=== PATIENT | male | born 1985 | race Caucasian/White ===

== ENCOUNTER 2022-04-14 06:43 | Emergency (ER) | payer OTHER, MEDICAID, SELFPAY ==
[2022-04-14 06:56] VITALS: BP 133/84; PULSE 94; RESP 15; TEMP 36.9; O2SAT 100; BMI 22.8
--- NOTE | 2022-04-14 07:07 | ED.SKABFB ---
HPI - Skin/Abscess/Foreign Bdy General Chief complaint: Skin/Abscess/Foreign Body Stated complaint: INFECTION IN CHIN LEFT Time Seen by Provider: 04/14/22 07:00 Source: patient Mode of arrival: Ambulatory Limitations: no limitations History of Present Illness HPI narrative: Patient is a 41-year-old male who with abscess under left chin. He states that he has had these before. He says he has gotten it to drain he says he got a much out yesterday but then felt like it was getting a little bit bigger. He has had no fever or chills. He does not want it cut open because he can drain it at home. He just wants antibiotics. He has no difficulty breathing he has not had any fever or chills. Related Data Previous Rx's Medication Instructions Recorded sulfamethoxazole 800 1 tab PO BID 10 days #20 tabs 04/14/22 mg-trimethoprim 160 mg tablet (Bactrim DS) Allergies Allergy/AdvReac Type Severity Reaction Status Date / Time No Known Drug Allergies Allergy Verified 04/14/22 06:56 Review of Systems Review of Systems Narrative: GENERAL: Denies chills,fever HEENT: Denies throat pain RESPIRATORY: Denies dyspnea, cough, wheezing CARDIOVASCULAR: Denies chest pain, palpitations GASTROINTESTINAL: Denies nausea, vomiting MUSCULOSKELETAL: Denies extremity pain, injury SKIN: See HPI NEUROLOGIC: Denies weakness, dizziness, headache, numbness 8 point review of systems is negative except for those stated above and HPI Patient History Social History Smoking Status: Current every day smoker Smoking Status: Current every day smoker alcohol intake frequency: a few times a week Substance Use Type: marijuana Exam Initial Vital Signs Initial Vital Signs: Vital Signs Temperature 98.5 F 04/14/22 06:56 Pulse Rate 94 H 04/14/22 06:56 Respiratory Rate 15 04/14/22 06:56 Blood Pressure 133/84 04/14/22 06:56 Pulse Oximetry 100 04/14/22 06:56 Oxygen Delivery Method 04/14/22 06:56 GENERAL: Well-appearing, well-nourished and in no acute distress. CARDIOVASCULAR: peripheral pulses in tact, cap refill <2 sec NECK: No significant swelling no airway compromise no erythema RESPIRATORY: No respiratory distress, speaks in full sentences without difficulty EXTREMITIES: Normal range of motion, no clubbing or edema. Neurovascularly intact NEUROLOGICAL: Cranial nerves II through XII grossly intact. Normal gait and speech. SKIN: Abscess under left chin in feared 2 and half by 3 cm fluctuation mild swelling no active draining at this time Course Vital Signs Vital signs: Vital Signs - 8 hr 04/14/22 06:56 Temperature 98.5 F Pulse Rate 94 H Respiratory Rate 15 Blood Pressure 133/84 Pulse Oximetry 100 Oxygen Delivery Method Room Air MDM - Skin/Abscess/Foreign Bdy MDM Narrative Medical decision making narrative: Discussion with patient try to encourage for I and D however he has had the my indeed before he has lots of scar tissue he is hesitant to do it again. He says he can get it to drain it is just not draining right now. I encouraged him to use warm compresses start him on antibiotics. So strongly encouraged him to come back it is getting worse. Discharge Plan Departure Patient Disposition: Home Clinical Impression: Abscess of skin or subcutaneous tissue Instructions: DI for Skin Abscess Activity Restrictions/Additional Instructions: *You have been diagnosed with abscess *What to do: Continue warm compresses, encourage draining. If this does not get significantly better this may need to be opened. *Continue to take medications as directed Bactrim 1 tablet twice a day for 10 days *Follow up with your primary care provider in 2-3 days or call [phone] *Return to ER if you should have increasing swelling, redness, difficulty breathing, spreading going down your neck, or any new, worsening or concerning symptoms Prescriptions: New sulfamethoxazole-trimethoprim [Bactrim DS] 800-160 mg tablet 1 tab PO BID 10 Days Qty: 20 0RF
== END 2022-04-14 07:22 | disposition home or self-care (01) ==
PROVIDERS: Emergency Provider Emergency Medicine
DX: L02.01 Cutaneous abscess of face (principal)
CPT/HCPCS: 99281

== ENCOUNTER 2022-10-01 05:06 | Emergency (ER) | payer OTHER, MEDICAID, SELFPAY ==
[2022-10-01] VITALS (14 sets, daily range): BP systolic 121–141; BP diastolic 70–99; PULSE 55–94; RESP 16; TEMP 37.1; O2SAT 94–100
--- NOTE | 2022-10-01 05:15 | PC.NURSE ---
Patient falling asleep, sitting upright with O2 saturation dropping into low 70's. Patient awakened and responds appropriately to coaching to deep breathe. Placed on 2L by NC as patient intermittently falling asleep.
--- NOTE | 2022-10-01 05:20 | ED.ABDPAIN ---
HPI - Abdominal Pain <Eviat Martinez DO - Last Filed: 10/01/22 18:57> General Chief Complaint: Abdominal Pain Stated Complaint: Right quad. ab pain Time Seen by Provider: 10/01/22 05:19 Source: patient and EMS Mode of arrival: EMS Limitations: no limitations History of Present Illness HPI narrative: This is a 37-year-old male with history of methamphetamine abuse complaint of sudden onset right lower quadrant pain, patient states it started about an hour and half prior to arrival. He denies fevers, no chills. No chest pain or shortness of breath. He states he had some nausea yesterday but no vomiting. He states he had little diarrhea yesterday no black or bloody stools. He denies radiation to the testicles. Patient states he does have a little bit of right flank pain as well. Patient denies any dysuria urgency or frequency but feels like he needs to urinate and can not. Patient has not had similar symptoms in the past. Denies any daily medications. States that he does smoke methamphetamines occasionally. Denies any prior surgeries. Denies any known drug allergies. He vapes nicotine. Denies regular alcohol use. Denies other illicit drugs besides methamphetamine, no THC. Related Data Previous Rx's Medication Instructions Recorded hydrocodone 5 mg-acetaminophen 325 1 tab PO Q4-6H PRN pain #10 tabs 10/01/22 mg tablet ketorolac 10 mg tablet 10 mg PO Q6H PRN pain #14 tabs 10/01/22 ondansetron 4 mg disintegrating 4 mg PO TID-QID PRN nausea and 10/01/22 tablet vomiting #10 tabs potassium chloride 10 mEq 20 meq PO DAILY 5 days #10 tabs 10/01/22 tablet,extended release(part/cryst) tamsulosin 0.4 mg capsule (Flomax) 0.4 mg PO DAILY #30 caps 10/01/22 Allergies Allergy/AdvReac Type Severity Reaction Status Date / Time No Known Drug Allergies Allergy Verified 04/14/22 06:56 Review of Systems <DO Willie Cabral Last Filed: 10/01/22 18:57> Review of Systems ROS Unobtainable: All systems reviewed & are unremarkable except as noted in HPI and below Patient History <Evita Martinez DO - Last Filed: 10/01/22 18:57> Social History Smoking Status: Current every day smoker Smoking Status: Current every day smoker alcohol intake frequency: a few times a week Substance Use Type: marijuana, amphetamines and methamphetamine Exam <Evita Martinez DO - Last Filed: 10/01/22 18:57> Narrative Exam Narrative: GENERAL: Alert and oriented x three, male in moderate distress. Patient appears quite uncomfortable. HEENT: Head normocephalic, atraumatic, EOMI, pupils reactive, face symmetric, moist mucous membranes NECK: Supple, full range of motion CARDIOVASCULAR: Regular rate and rhythm without murmurs, rubs or gallops. RESPIRATORY: Breath sounds equal bilaterally, no wheezes rales or rhonchi. ABDOMEN: Soft, mild right lower quadrant tenderness Normoactive bowel sounds all 4 quadrants. No guarding or rebound, rigidity, no mass : Mild right flank tenderness, no left tenderness. Male: normal external examination, no penile discharge or lesions, testicles non-tender, cremasteric reflex intact, no inguinal hernias noted. EXTREMITIES: Normal range of motion, no clubbing or edema. Neurovascularly intact NEUROLOGICAL: Cranial nerves II through XII grossly intact. Moving all extremities SKIN: Warm, dry, no petechiae, no rashes or lesions. Initial Vital Signs Initial Vital Signs: Vital Signs Temperature 98.7 F 10/01/22 05:10 Pulse Rate 59 L 10/01/22 05:10 Respiratory Rate 16 10/01/22 05:10 Blood Pressure 141/99 H 10/01/22 05:10 Pulse Oximetry 94 10/01/22 05:10 Oxygen Delivery Method 10/01/22 05:10 <Thomas Aldana DO - Last Filed: 10/01/22 10:37> Initial Vital Signs Initial Vital Signs: Vital Signs Temperature 98.7 F 10/01/22 05:10 Pulse Rate 59 L 10/01/22 05:10 Respiratory Rate 16 10/01/22 05:10 Blood Pressure 141/99 H 10/01/22 05:10 Pulse Oximetry 94 10/01/22 05:10 Oxygen Delivery Method 10/01/22 05:10 Course <Evita Martinez DO - Last Filed: 10/01/22 18:57> Orders Ordered: ED Orders 10/01/22 09:57 Urine Microscopic Stat Discontinued Medications Sodium Chloride (Normal Saline 0.9%) 1,000 mls @ 1,000 mls/hr IV BOLUS ONE Stop: 10/01/22 06:30 Last Infusion: 10/01/22 06:59 Dose: 0 mls/hr Documented By: Admin: 10/01/22 05:46 Dose: 1,000 mls/hr Documented By: CHARAN Ketorolac Tromethamine (Ketorolac 30 Mg/Ml Vial) 30 mg IV NOW ONE Stop: 10/01/22 05:32 Last Admin: 10/01/22 05:46 Dose: 30 mg Documented By: CHARAN Ondansetron HCl (Ondansetron 4 Mg Odt) 4 mg PO NOW PRN PRN Reason: Nausea And Vomiting Ondansetron HCl (Ondansetron 4 Mg/2 Ml Inj) 4 mg IV NOW PRN PRN Reason: Nausea And Vomiting Tamsulosin HCl (Tamsulosin 0.4 Mg Capsule) 0.4 mg PO NOW ONE Stop: 10/01/22 06:35 Last Admin: 10/01/22 07:02 Dose: 0.4 mg Documented By: CHARAN Reevaluation(s) Reevaluation #1: Patient is feeling improved. Time: 06:54 Vital Signs Vital signs: Vital Signs - 8 hr 10/01/22 05:10 10/01/22 05:18 10/01/22 05:30 Temperature 98.7 F Pulse Rate 59 L 61 72 Respiratory Rate 16 Blood Pressure 141/99 H Pulse Oximetry 94 100 100 Oxygen Delivery Method Room Air 10/01/22 06:00 10/01/22 06:30 10/01/22 07:00 Temperature Pulse Rate 55 L 60 69 Respiratory Rate Blood Pressure Pulse Oximetry 100 100 100 Oxygen Delivery Method 10/01/22 07:30 10/01/22 08:00 10/01/22 08:30 Temperature Pulse Rate 75 74 73 Respiratory Rate Blood Pressure Pulse Oximetry 100 100 100 Oxygen Delivery Method 10/01/22 09:00 10/01/22 09:30 10/01/22 10:00 Temperature Pulse Rate 76 83 80 Respiratory Rate Blood Pressure Pulse Oximetry 100 99 98 Oxygen Delivery Method 10/01/22 10:28 10/01/22 10:28 10/01/22 10:30 Temperature Pulse Rate 94 H 91 H Respiratory Rate Blood Pressure 121/70 Pulse Oximetry 98 99 Oxygen Delivery Method <Thomas Aldana, - Last Filed: 10/01/22 10:37> Orders Ordered: ED Orders 10/01/22 09:57 Urine Microscopic Stat Discontinued Medications Sodium Chloride (Normal Saline 0.9%) 1,000 mls @ 1,000 mls/hr IV BOLUS ONE Stop: 10/01/22 06:30 Last Infusion: 10/01/22 06:59 Dose: 0 mls/hr Documented By: Admin: 10/01/22 05:46 Dose: 1,000 mls/hr Documented By: CHARAN Ketorolac Tromethamine (Ketorolac 30 Mg/Ml Vial) 30 mg IV NOW ONE Stop: 10/01/22 05:32 Last Admin: 10/01/22 05:46 Dose: 30 mg Documented By: CHARAN Ondansetron HCl (Ondansetron 4 Mg Odt) 4 mg PO NOW PRN PRN Reason: Nausea And Vomiting Ondansetron HCl (Ondansetron 4 Mg/2 Ml Inj) 4 mg IV NOW PRN PRN Reason: Nausea And Vomiting Tamsulosin HCl (Tamsulosin 0.4 Mg Capsule) 0.4 mg PO NOW ONE Stop: 10/01/22 06:35 Last Admin: 10/01/22 07:02 Dose: 0.4 mg Documented By: CHARAN Vital Signs Vital signs: Vital Signs - 8 hr 10/01/22 05:10 10/01/22 05:18 10/01/22 05:30 Temperature 98.7 F Pulse Rate 59 L 61 72 Respiratory Rate 16 Blood Pressure 141/99 H Pulse Oximetry 94 100 100 Oxygen Delivery Method Room Air 10/01/22 06:00 10/01/22 06:30 10/01/22 07:00 Temperature Pulse Rate 55 L 60 69 Respiratory Rate Blood Pressure Pulse Oximetry 100 100 100 Oxygen Delivery Method 10/01/22 07:30 10/01/22 08:00 10/01/22 08:30 Temperature Pulse Rate 75 74 73 Respiratory Rate Blood Pressure Pulse Oximetry 100 100 100 Oxygen Delivery Method 10/01/22 09:00 10/01/22 09:30 10/01/22 10:00 Temperature Pulse Rate 76 83 80 Respiratory Rate Blood Pressure Pulse Oximetry 100 99 98 Oxygen Delivery Method 10/01/22 10:28 10/01/22 10:28 10/01/22 10:30 Temperature Pulse Rate 94 H 91 H Respiratory Rate Blood Pressure 121/70 Pulse Oximetry 98 99 Oxygen Delivery Method MDM - Abdominal Pain <Evita Martinez, - Last Filed: 10/01/22 18:57> Lab Data Result diagrams: 10/01/22 05:20 10/01/22 05:20 Labs: Lab Results 10/01/22 10/01/22 10/01/22 Range/Units 05:20 05:20 09:57 WBC 12.3 H (4.5-11.0) X10^3/uL RBC 4.90 (4.5-5.9) X10^6/uL Hgb 13.9 (13.5-17.5) g/dL Hct 41.0 (41-53) % MCV 83.6 (80-100) fL MCH 28.3 (26-34) PG MCHC 33.8 (30-36) % RDW 13.4 (11.6-14.8) % Plt Count 270 (150-400) X10^3/uL Neut % (Auto) 67.5 (50-75) % Lymph % (Auto) 21.8 L (25-40) % [place] % (Auto) 7.8 (3-14) % Eos % (Auto) 2.4 (2-4) % Baso % (Auto) 0.5 (0-2) % Neut # (Auto) 8300 H (2122-4454) /uL Lymph # (Auto) 2700 (3682-8473) /uL [place] # (Auto) 1000 H (0-900) /uL Eos # (Auto) 300 (0-450) /uL Baso # (Auto) 100 (0-100) /uL Sodium 140 (137-145) mmol/L Potassium 3.1 L (3.4-5.1) mmol/L Chloride 104 (98-107) mmol/L Carbon Dioxide 22 (22-32) mmol/L BUN 15 (9-20) mg/dL Creatinine 0.91 (0.66-1.25) mg/dL Estimated GFR > 60 (>60) mL/min BUN/Creatinine Ratio 16.5 (6-22) Glucose 155 H (70-100) mg/dL Calcium 9.0 (8.4-10.2) mg/dL Total Bilirubin 1.4 H (0.2-1.3) mg/dL AST 21 (17-59) IU/L ALT 18 (<50) IU/L Alkaline Phosphatase 83 (38-126) U/L Total Protein 7.3 (6.3-8.2) g/dL Albumin 4.4 (3.5-5.0) g/dL Globulin 2.9 (1.7-4.1) g/dL Albumin/Globulin Ratio 1.5 (1.0-2.8) Lipase 63 (23-300) U/L Urine RBC 10-30/hpf H (0-5/HPF) Urine WBC 0-1/hpf (0-5/HPF) Amorphous Sediment 2+ Urine Bacteria Many (>30) H (None) Ur Culture Indicated? Cult not indicated Point of care testing: Urine Dip Bedside Urine Glucose Negative Bedside Urine Bilirubin - Negative Bedside Urine Ketone + 15 Urine Specific [place] 1.005 Bedside Urine Occult Blood +++ Bedside Urine pH 8.5 Bedside Urine Protein +/- 15 Bedside Urine Urobilinogen - Negative Bedside Urine Nitrite - Negative Bedside Urine Leukocytes - Negative Esterase Imaging Data CT scan - abdomen/pelvis: Radiologist's Impression: Moderate right hydroureteronephrosis, perinephric periureteral inflammatory changes with obstructing 4 mm UV J calculus. Delayed right nephrogram. Levoscoliosis. No other acute changes appreciated. MDM Narrative Medical decision making narrative: This is a 37-year-old male with history of methamphetamine abuse who states he normally smokes he denies IV or injection use. Patient had fairly abrupt onset of right lower quadrant pain but also some right flank. He did have some nausea yesterday and some diarrhea like stools. Possibility of appendicitis but seems more suspicious for kidney stone, vascular issues or also potential or colitis or other intra-abdominal process. Labs, urine and CT abdomen pelvis ordered, patient has potassium 3.1, bilirubin is 1.4, renal functions normal with normal LFTs, WBC is 12. Awaiting urine sample. Patient received IV fluids, pain medication and Zofran patient is feeling improved. CT shows right 4 mm stone with moderate hydro. Patient signed out to Dr. Ontiveros while awaiting urine sample to rule out infection. Patient has had Flomax here in the department. <Thomas Jovan, DO - Last Filed: 10/01/22 10:37> Lab Data Labs: Lab Results 10/01/22 10/01/22 10/01/22 Range/Units 05:20 05:20 09:57 WBC 12.3 H (4.5-11.0) X10^3/uL RBC 4.90 (4.5-5.9) X10^6/uL Hgb 13.9 (13.5-17.5) g/dL Hct 41.0 (41-53) % MCV 83.6 (80-100) fL MCH 28.3 (26-34) PG MCHC 33.8 (30-36) % RDW 13.4 (11.6-14.8) % Plt Count 270 (150-400) X10^3/uL Neut % (Auto) 67.5 (50-75) % Lymph % (Auto) 21.8 L (25-40) % [place] % (Auto) 7.8 (3-14) % Eos % (Auto) 2.4 (2-4) % Baso % (Auto) 0.5 (0-2) % Neut # (Auto) 8300 H (1257-8349) /uL Lymph # (Auto) 2700 (9831-1432) /uL [place] # (Auto) 1000 H (0-900) /uL Eos # (Auto) 300 (0-450) /uL Baso # (Auto) 100 (0-100) /uL Sodium 140 (137-145) mmol/L Potassium 3.1 L (3.4-5.1) mmol/L Chloride 104 (98-107) mmol/L Carbon Dioxide 22 (22-32) mmol/L BUN 15 (9-20) mg/dL Creatinine 0.91 (0.66-1.25) mg/dL Estimated GFR > 60 (>60) mL/min BUN/Creatinine Ratio 16.5 (6-22) Glucose 155 H (70-100) mg/dL Calcium 9.0 (8.4-10.2) mg/dL Total Bilirubin 1.4 H (0.2-1.3) mg/dL AST 21 (17-59) IU/L ALT 18 (<50) IU/L Alkaline Phosphatase 83 (38-126) U/L Total Protein 7.3 (6.3-8.2) g/dL Albumin 4.4 (3.5-5.0) g/dL Globulin 2.9 (1.7-4.1) g/dL Albumin/Globulin Ratio 1.5 (1.0-2.8) Lipase 63 (23-300) U/L Urine RBC 10-30/hpf H (0-5/HPF) Urine WBC 0-1/hpf (0-5/HPF) Amorphous Sediment 2+ Urine Bacteria Many (>30) H (None) Ur Culture Indicated? Cult not indicated Point of care testing: Urine Dip Bedside Urine Glucose Negative Bedside Urine Bilirubin - Negative Bedside Urine Ketone + 15 Urine Specific [place] 1.005 Bedside Urine Occult Blood +++ Bedside Urine pH 8.5 Bedside Urine Protein +/- 15 Bedside Urine Urobilinogen - Negative Bedside Urine Nitrite - Negative Bedside Urine Leukocytes - Negative Esterase MDM Narrative Medical decision making narrative: This is a 37-year-old male with history of methamphetamine abuse who states he normally smokes he denies IV or injection use. Patient had fairly abrupt onset of right lower quadrant pain but also some right flank. He did have some nausea yesterday and some diarrhea like stools. Possibility of appendicitis but seems more suspicious for kidney stone, vascular issues or also potential or colitis or other intra-abdominal process. Labs, urine and CT abdomen pelvis ordered, patient has potassium 3.1, bilirubin is 1.4, renal functions normal with normal LFTs, WBC is 12. Awaiting urine sample. Patient received IV fluids, pain medication and Zofran patient is feeling improved. CT shows right 4 mm stone with moderate hydro. Patient signed out to Dr. Ontiveros while awaiting urine sample to rule out infection. Patient has had Flomax here in the department. [[id number]] (Jovan) Patient received in sign out from [Juan]. I have reviewed the clinical course and performed an independent history and physical exam. Patient's pain is well controlled, he is tolerating orals and has produced a urine sample that shows no sign of infection. Discharge Plan Departure Patient Disposition: Home Clinical Impression: Calculus of right kidney, Acute hypokalemia Instructions: DI for Kidney Stones Activity Restrictions/Additional Instructions: *You have been diagnosed with right-sided kidney stone and mild low potassium *What to do: *Please continue to take your regular medications as directed. [ x] New medication prescriptions sent to your pharmacy: [[facility] ] [ ] New medication written as a paper prescription [ ] No new medications given *Please follow up with your primary care provider in 2-3 days, call for an appointment. Let them know you were seen in the Emergency Department and that we ask that you be seen in follow up. We will electronically transmit a record of today's note if your PCP is in our system * I did send a prescription for a potassium replacement, however there are some studies that would suggest it is more readily absorbed through diet and if you would prefer to search for foods that are high in potassium this is a reasonable option *If you do not have a primary care provider please contact the [facility] Resource line at [phone]. They will ask some questions about your medical history and help get you set up with a doctor in the community. *Return to Emergency Department if you should have any new, worsening or concerning symptoms, such as [fever greater than 101 F, shaking chills, worsening pain, persistent vomiting or other bothersome symptoms] Prescriptions: New hydrocodone-acetaminophen 5-325 mg tablet 1 tab PO Q4-6H PRN (Reason: pain) Qty: 10 0RF ketorolac 10 mg tablet 10 mg PO Q6H PRN (Reason: pain) Qty: 14 0RF tamsulosin [Flomax] 0.4 mg capsule 0.4 mg PO DAILY Qty: 30 0RF ondansetron 4 mg tablet,disintegrating 4 mg PO TID-QID PRN (Reason: nausea and vomiting) Qty: 10 0RF potassium chloride 10 mEq tablet,ER particles/crystals 20 meq PO DAILY 5 Days Qty: 10 0RF Visit Report Forms: Patient Portal/API
--- NOTE | 2022-10-01 05:31 | DI.CT.S_ITS ---
PROCEDURE: CT ABDOMEN PELVIS W CON INDICATIONS: RLQ pain, acute onset, tender, stone vs appy, vs other TECHNIQUE: After the administration of intravenous contrast, axial sections acquired from the lung bases to the pubic symphysis. Coronal and sagittal reformats were performed. For radiation dose reduction, the following was used: automated exposure control, adjustment of mA and/or kV according to patient size. COMPARISON: None. FINDINGS: Image quality: Excellent Lower chest: Unremarkable Solid organs: The liver is unremarkable. No pathologic dilation of the biliary tree or pancreatic duct. Gallbladder is overall unremarkable on CT. No splenomegaly. No adrenal nodules. There is mild to moderate right hydronephrosis secondary to a stone in the UVJ measuring about 3-4 mm mm. There is a delayed right nephrogram. Vessels and lymph nodes: No abdominal aortic aneurysm or pathologic lymphadenopathy by size criteria. Bowel and peritoneum: No bowel obstruction. No pathologic ascites. Body wall: Unremarkable. Tiny fat containing umbilical hernia. Pelvis: Bladder is under distended. Prostate with heterogeneous enhancement, not well evaluated on CT. Bones: No acute or suspicious osseous lesion. Scattered sclerotic lesions might represent bone islands. IMPRESSION: Obstructing small right 3-4 mm UVJ calculus with mild to moderate right hydronephrosis and CT evidence of obstructive uropathy. Other findings as above. Agree with prelim report. Dictated by: Toni Iverson M.D. on 10/01/2022 at 7:59 Approved by: Toni Iverson M.D. on 10/01/2022 at 8:06
[2022-10-01 05:44] LABS: Add Manual Diff / Slide Review NO; Basophils Absolute Auto 100 /uL (0-100); Basophils Percent Auto 0.5 % (0-2); Eosinophils Absolute Auto 300 /uL (0-450); Eosinophils Percent Auto 2.4 % (2-4); Hemoglobin 13.9 g/dL (13.5-17.5); Lymphocytes Absolute Auto 2700 /uL (1100-4500); Lymphocytes Percent Auto 21.8 % (25-40); Mean Corpuscular HGB Conc 33.8 % (30-36); Mean Corpuscular Hemoglobin 28.3 PG (26-34); Mean Corpuscular Volume 83.6 fL (80-100); Monocytes Absolute Auto 1000 /uL (0-900); Monocytes Percent Auto 7.8 % (3-14); Neutrophils Absolute Auto 8300 /uL (1500-7000); Neutrophils Percent Auto 67.5 % (50-75); Platelet Count 270 X10^3/uL (150-400); Red Cell Distribution Width 13.4 % (11.6-14.8); White Blood Cell Count 12.3 X10^3/uL (4.5-11.0)
[2022-10-01] MEDS: KETOROLAC 30 MG/ML VIAL IV (05:46)
[2022-10-01] MEDS: SODIUM CHLORIDE 0.9% 1,000 ML 1000 ML IV (05:46)
[2022-10-01 05:57] LABS: Alanine Aminotransferase 18 IU/L (<50); Albumin 4.4 g/dL (3.5-5.0); Albumin Globulin Ratio 1.5 (1.0-2.8); Alkaline Phosphatase 83 U/L (38-126); Aspartate Aminotransferase 21 IU/L (17-59); BUN Creatinine Ratio 16.5 (6-22); Bilirubin Total 1.4 mg/dL (0.2-1.3); Blood Urea Nitrogen 15 mg/dL (9-20); Carbon Dioxide 22 mmol/L (22-32); Chloride 104 mmol/L (98-107); Estimated Glomerular Filt Rate > 60 mL/min (>60); Globulin 2.9 g/dL (1.7-4.1); Glucose 155 mg/dL (70-100); HEMOLYSIS < 15 (0-50); Lipase 63 U/L (23-300); Potassium 3.1 mmol/L (3.4-5.1); Sodium 140 mmol/L (137-145); Total Protein 7.3 g/dL (6.3-8.2)
[2022-10-01] MEDS: TAMSULOSIN 0.4 MG CAPSULE PO (07:02)
--- NOTE | 2022-10-01 10:35 | PC.NURSE ---
assessment done by provider
[2022-10-01 10:45] LABS: Bacteria Urine Many (>30); RBC Urine 10-30/HPF (0-5/HPF); WBC Urine 0-1/HPF (0-5/HPF)
[2022-10-01 10:46] LABS: Amorphous Sediment Urine 2+; Culture Indicated Urine Cult Not Indicated
== END 2022-10-01 10:37 | disposition home or self-care (01) ==
PROVIDERS: Emergency Medicine; Emergency Provider Emergency Medicine
DX: N20.0 Calculus of kidney (principal); E87.6 Hypokalemia
CPT/HCPCS: 36415; 51798; 74177; 80053; 81003; 81015; 83690; 85025; 93005; 93010; 96361; 96374; 99284; J1885

== ENCOUNTER 2022-11-09 15:54 | Emergency (ER) | payer OTHER, MEDICAID, SELFPAY ==
[2022-11-09 16:11] VITALS: BP 138/93; PULSE 84; RESP 16; TEMP 36.6; O2SAT 100; BMI 22.3
--- NOTE | 2022-11-09 16:32 | ED.EAR ---
HPI - Ear Problem <HOLDEN Hays - Last Filed: 11/09/22 17:06> General Chief complaint: Ear Stated complaint: rt ear pain Time Seen by Provider: 11/09/22 16:21 Source: patient Mode of arrival: Ambulatory History of Present Illness HPI Narrative: This is a 37-year-old male who presents to the emergency department complaining of 1 week of right sided deep ear pain, states it started draining a few days ago and now he has swelling, pain and erythema to his right ear canal. He denies history of this in the past. Denies putting anything into his ears recently, states that he has been trying to clean it but it is painful, tender and swollen. He still has deep ear pain and states that his ears ringing. He denies nausea vomiting, fever chills, weakness or dizziness. Related Data Previous Rx's Medication Instructions Recorded hydrocodone 5 mg-acetaminophen 325 1 tab PO Q4-6H PRN pain #10 tabs 10/01/22 mg tablet ketorolac 10 mg tablet 10 mg PO Q6H PRN pain #14 tabs 10/01/22 ondansetron 4 mg disintegrating 4 mg PO TID-QID PRN nausea and 10/01/22 tablet vomiting #10 tabs tamsulosin 0.4 mg capsule (Flomax) 0.4 mg PO DAILY #30 caps 10/01/22 acetaminophen 325 mg tablet 650 mg PO Q6H PRN pain #20 tabs 11/09/22 (Tylenol) cetirizine 10 mg tablet 10 mg PO DAILY congestion #30 tabs 11/09/22 ibuprofen 600 mg tablet 600 mg PO Q8H PRN pain #14 tabs 11/09/22 Allergies Allergy/AdvReac Type Severity Reaction Status Date / Time No Known Drug Allergies Allergy Verified 04/14/22 06:56 Review of Systems <HOLDEN Hays - Last Filed: 11/09/22 17:06> Review of Systems ROS Unobtainable: All systems reviewed & are unremarkable except as noted in HPI and below Patient History <HOLDEN Hays - Last Filed: 11/09/22 17:06> Social History Smoking Status: Current every day smoker Smoking Status: Current every day smoker tobacco type: vaping alcohol intake frequency: a few times a week Substance Use Type: marijuana Exam <HOLDEN Hays - Last Filed: 11/09/22 17:06> Narrative Exam Narrative: Reviewed vitals signs and nursing notes. General: cooperative, comfortable, in no acute distress, well groomed, afebrile HEENT: symmetrical facial expressions, moist mucous membranes, right ear with erythema to the auricle and canal with discharge present on the base of the canal, bubbles present behind TM, serous media, no tenderness over mastoid, exquisite tenderness of ear canal with mild flaking Psych: mental status is grossly normal, congruent mood, normal affect, pleasant and cooperative Initial Vital Signs Initial Vital Signs: Vital Signs Temperature 97.9 F 11/09/22 16:11 Pulse Rate 84 11/09/22 16:11 Respiratory Rate 16 11/09/22 16:11 Blood Pressure 138/93 H 11/09/22 16:11 Pulse Oximetry 100 11/09/22 16:11 Oxygen Delivery Method 11/09/22 16:11 <Jonh Curtis MD - Last Filed: 11/24/22 07:34> Initial Vital Signs Initial Vital Signs: Vital Signs Temperature 97.9 F 11/09/22 16:11 Pulse Rate 84 11/09/22 16:11 Respiratory Rate 16 11/09/22 16:11 Blood Pressure 138/93 H 11/09/22 16:11 Pulse Oximetry 100 11/09/22 16:11 Oxygen Delivery Method 11/09/22 16:11 Course <HOLDEN Hays - Last Filed: 11/09/22 17:06> Orders Ordered: Discontinued Medications Amoxicillin/Clavulanate Potassium (Amoxicillin/Clav 875/125 Mg) 1 tab PO NOW ONE Stop: 11/09/22 16:27 Last Admin: 11/09/22 16:43 Dose: 1 tab Documented By: SIDDHARTHA Ketorolac Tromethamine (Ketorolac 10 Mg Tablet) 10 mg PO NOW ONE Stop: 11/09/22 16:27 Last Admin: 11/09/22 16:43 Dose: 10 mg Documented By: SIDDHARTHA Ofloxacin (Ofloxacin 0.3% Ophth 5 Ml) 5 drops EAR-RIGHT NOW ONE Stop: 11/09/22 16:29 Last Admin: 11/09/22 16:48 Dose: Not Given Documented By: ISDDHARTHA Vital Signs Vital signs: Vital Signs - 8 hr 11/09/22 16:11 Temperature 97.9 F Pulse Rate 84 Respiratory Rate 16 Blood Pressure 138/93 H Pulse Oximetry 100 Oxygen Delivery Method Room Air <Jonh Curtis MD - Last Filed: 11/24/22 07:34> Orders Ordered: Discontinued Medications Amoxicillin/Clavulanate Potassium (Amoxicillin/Clav 875/125 Mg) 1 tab PO NOW ONE Stop: 11/09/22 16:27 Last Admin: 11/09/22 16:43 Dose: 1 tab Documented By: SIDDHARTHA Ketorolac Tromethamine (Ketorolac 10 Mg Tablet) 10 mg PO NOW ONE Stop: 11/09/22 16:27 Last Admin: 11/09/22 16:43 Dose: 10 mg Documented By: SIDDHARTHA Ofloxacin (Ofloxacin 0.3% Ophth 5 Ml) 5 drops EAR-RIGHT NOW ONE Stop: 11/09/22 16:29 Last Admin: 11/09/22 16:48 Dose: Not Given Documented By: SIDDHARTHA Vital Signs Vital signs: Vital Signs - 8 hr 11/09/22 16:11 Temperature 97.9 F Pulse Rate 84 Respiratory Rate 16 Blood Pressure 138/93 H Pulse Oximetry 100 Oxygen Delivery Method Room Air Medical Decision Making <HOLDEN Hays - Last Filed: 11/09/22 17:06> [facility] Narrative Medical decision making narrative: Chief Complaint: Right ear pain This is a 37-year-old male who presents to the emergency department complaining of 1 week of right sided deep ear pain, states it started draining a few days ago and now he has swelling, pain and erythema to his right ear canal. He denies history of this in the past. Denies putting anything into his ears recently, states that he has been trying to clean it but it is painful, tender and swollen. He still has deep ear pain and states that his ears ringing. He denies nausea vomiting, fever chills, weakness or dizziness. Differential diagnoses include but are not limited to: Otitis externa, otitis media, ruptured tympanic membrane, viral respiratory infection, mastoiditis, chronic otitis media I have reviewed the patient's vital signs and nursing notes as well as prior records if available. Discussion: On exam, patient has otitis externa, he states that his symptoms started in his right ear in the middle ear, over a few days of congestion and upper respiratory infection he states that he had drainage out of his right ear with worsening right ear pain. I suspect that this is when he ruptured his tympanic membrane as he has bubbles behind his TM, states that his ear canal has become painful and tender with redness over the last 3-4 days with persistent drainage in his ear. I prescribed for him ofloxacin for otitis externa times 10 days with a ruptured TM and Augmentin b.i.d. times 10 days for otitis media. I gave him contact information for Dr. Solitario to follow-up with your nose and throat for ongoing symptoms, he was nontender over his mastoid, hearing is still intact but he reports it as ringing. Patient does not have allergies, fever today in the emergency department or other systemic symptoms of illness. His pain was treated Toradol p.o.. Patient's symptoms improved over duration of stay with above-stated therapies. Social considerations that may affect disposition: None known Questions are addressed and there is agreement with the plan and for follow-up. Patient is appropriate for outpatient management. MIPS: #93 - Acute Otitis Externa (AOE): Systemic Antimicrobial Therapy [] The patient has Acute Otitis Externa and was not prescribed oral/systemic antibiotics today. [SATISFIES MIPS PERFORMANCE] [x] The patient has Acute Otitis Externa and was prescribed oral/systemic antibiotics because otitis media preceded otitis externa with bubbles behind TM secondary infection). [MIPS PERFORMANCE EXCEPTION/EXCLUSION] [] The patient has Acute Otitis Externa and was prescribed oral/systemic antibiotics today. [DOES NOT SATISFY MIPS PERFORMANCE] Discharge Plan Departure Patient Disposition: Home Clinical Impression: Otitis externa, Otitis media Instructions: Ruptured Eardrum, DI for Otitis Externa Activity Restrictions/Additional Instructions: *You have been diagnosed with a right ear infection that likely started as a middle ear infection and then progressed to rupture with now an outer ear infection. Please use these drops that I prescribed for you 5 drops daily for 10 days, please take the antibiotic twice a day for the next 10 days and use Zyrtec as needed for congestion and or to help open up your middle ear. They stay hydrated, please follow-up with Dr. Solitario from [facility] if you have ongoing symptoms, avoid putting anything besides this medicine into your ear. Use ibuprofen and or Tylenol as needed for your pain *What to do: *Please continue to take your regular medications as directed. [ ] New medication prescriptions sent to your pharmacy: [[facility]] [ ] New medication written as a paper prescription [ ] No new medications given *Please follow up with your primary care provider in 2-3 days, call for an appointment. Let them know you were seen in the Emergency Department and that we asked that you be seen for follow-up. We will electronically transmit a record of today's note if your PCP is in our system *If you do not have a primary care provider please contact [phone] to establish care with one of [facility] primary care providers. *Return to Emergency Department if you should have any new, worsening, or concerning symptoms, such as [fever greater than 101F, chills, worsening pain, persistent vomiting or other bothersome symptoms]. Prescriptions: New cetirizine 10 mg tablet 10 mg PO DAILY Qty: 30 0RF acetaminophen [Tylenol] 325 mg tablet 650 mg PO Q6H PRN (Reason: pain) Qty: 20 0RF ibuprofen 600 mg tablet 600 mg PO Q8H PRN (Reason: pain) Qty: 14 0RF No Action hydrocodone-acetaminophen 5-325 mg tablet 1 tab PO Q4-6H PRN (Reason: pain) Qty: 10 0RF ketorolac 10 mg tablet 10 mg PO Q6H PRN (Reason: pain) Qty: 14 0RF tamsulosin [Flomax] 0.4 mg capsule 0.4 mg PO DAILY Qty: 30 0RF ondansetron 4 mg tablet,disintegrating 4 mg PO TID-QID PRN (Reason: nausea and vomiting) Qty: 10 0RF Referrals: Sterling Solitario MD [Physician] - Stand Alone Forms: Patient Portal/API <Jonh Curtis MD - Last Filed: 11/24/22 07:34> Cosign ED Attending Geovanny Attestation: I was immediately available in the department for consultation. ?This documentation has been reviewed and I agree with assessment and plan. Supervised by Jonh Curtis MD
[2022-11-09] MEDS: KETOROLAC 10 MG TABLET PO (16:43)
[2022-11-09] MEDS: AMOXICILLIN/CLAV 875/125 MG 1 TAB PO (16:43)
== END 2022-11-09 16:49 | disposition home or self-care (01) ==
PROVIDERS: Emergency Provider Nurse Practitioner Critical Care Medicine
DX: H66.011 Acute suppurative otitis media with spontaneous rupture of ear drum, right ear (principal); H60.91 Unspecified otitis externa, right ear; F17.200 Nicotine dependence, unspecified, uncomplicated
CPT/HCPCS: 99283